=== PATIENT | female | born 1945 | race Caucasian/White ===

== ENCOUNTER 2021-02-25 18:13 | Inpatient (IN) | payer MEDICARE ==
[~2021-02-25] VITALS: Ht 170.2 cm; Wt 59.9 kg
[2021-02-25 20:46] LABS: BASOPHILS 0.1 % (0-2); IMMATURE GRANULOCYTES 0.3 % (0-5); LYMPHOCYTE ABS# 2.03 10x3/uL (1.18-3.74); LYMPHOCYTES 20.7 % (15-50); MCH 30.5 pg (26.0-34.0); MCHC 30.9 g/dL (31.0-37.0); MCV 98.9 fL (80.0-100.0); MEAN PLATELET VOLUME 8.8 fL (7.4-10.4); MONOCYTES 7.3 % (2-11); NEUTROPHIL ABS# 6.65 10x3/uL (1.56-6.13); NEUTROPHILS 67.6 % (40-80); PLATELET COUNT 382 10x3/uL (130-400); RDW 21.4 % (11.5-14.5); WBC 9.8 10x3/uL (4.8-10.8)
[2021-02-25 20:51] LABS: HEMATOCRIT 18.8 % (36.0-48.0); HEMOGLOBIN 5.8 g/dL (12-16)
[2021-02-25 20:53] LABS: INR 1.13 (0.85-1.17); PROTIME 13.4 SECONDS (11.6-15.0)
[2021-02-25 20:54] LABS: CALC OSMOLALITY 284 mosm/kg (275-300); CALCIUM 8.9 mg/dL (8.5-10.1); CARBON DIOXIDE 26.7 mmol/L (21.0-32.0); CHLORIDE - SERUM 98 mmol/L (98-107); CREATININE - SERUM 4.5 mg/dL (0.6-1.3); GLUCOSE 136 mg/dL (74-106); POTASSIUM - SERUM 3.8 mmol/L (3.5-5.1); SODIUM 136 mmol/L (136-145); UREA NITROGEN 42 mg/dL (7-18); eGFR NON AFRICAN AMERICAN 10 mL/min (90-120)
[2021-02-25 21:26] LABS: ALBUMIN 2.6 g/dL (3.4-5.0); ALKALINE PHOSPHATASE 195 U/L (30-120); ALT (SGPT) 32 U/L (10-68); BILIRUBIN - TOTAL 0.41 mg/dL (0.2-1.3); CKMB 1.9 U/L (0.0-3.6); CREATINE KINASE 91 UL (21-215); FERRITIN 295 ng/mL (3-244); MAGNESIUM - SERUM 1.6 mg/dL (1.8-2.4); PROTEIN - SERUM 5.3 g/dL (6.4-8.2)
[2021-02-26 04:00] VITALS: BP 142/50
[2021-02-26] MEDS ORDERED: LIPITOR40 MG PO (07:29)
[2021-02-26 08:14] VITALS: BP 152/75
--- NOTE | 2021-02-26 09:42 | NUR ---
NURSE GIVES PATIENT IV PAIN MEDS FOR 10/10 PAIN IN HER RIGHT SHOULDER. SHE STATES SHE PULLED HERSELF UP IN BED AND HURT HER SHOULDER.
[2021-02-26 10:41] LABS: BASOPHILS 0.2 % (0-2); EOSINOPHILS 4.2 % (0-7); IMMATURE GRANULOCYTES 0.5 % (0-5); LYMPHOCYTE ABS# 1.08 10x3/uL (1.18-3.74); LYMPHOCYTES 12.3 % (15-50); MCH 30.3 pg (26.0-34.0); MCHC 32.4 g/dL (31.0-37.0); MEAN PLATELET VOLUME 8.9 fL (7.4-10.4); MONOCYTES 6.9 % (2-11); NEUTROPHIL ABS# 6.69 10x3/uL (1.56-6.13); NEUTROPHILS 75.9 % (40-80); PLATELET COUNT 343 10x3/uL (130-400); RDW 19.8 % (11.5-14.5); WBC 8.8 10x3/uL (4.8-10.8)
[2021-02-26 10:49] LABS: HEMATOCRIT 28.7 % (36.0-48.0); HEMOGLOBIN 9.3 g/dL (12-16); MCV 93.5 fL (80.0-100.0); RBC 3.07 10x6/uL (4.00-5.40)
[2021-02-26 10:53] LABS: ALBUMIN 2.7 g/dL (3.4-5.0); ANION GAP 12.4 mmol/L (8-16); BILIRUBIN - TOTAL 0.96 mg/dL (0.2-1.3); CARBON DIOXIDE 28.5 mmol/L (21.0-32.0); CREATININE - SERUM 4.6 mg/dL (0.6-1.3); MAGNESIUM - SERUM 1.6 mg/dL (1.8-2.4); POTASSIUM - SERUM 3.9 mmol/L (3.5-5.1); PROTEIN - SERUM 6.2 g/dL (6.4-8.2)
[2021-02-26 13:52] VITALS: Ht 170.2 cm; Wt 59.9 kg
--- NOTE | 2021-02-26 19:15 | NUR ---
pt lying in bed awake, alert denies needs, will contineu to monitor
[2021-02-26 20:00] VITALS: BP 147/69
[2021-02-27 04:00] VITALS: BP 161/66
[2021-02-27 06:11] LABS: BASOPHILS 0.2 % (0-2); EOSINOPHILS 4.8 % (0-7); HEMATOCRIT 28.8 % (36.0-48.0); HEMOGLOBIN 9.2 g/dL (12-16); IMMATURE GRANULOCYTES 0.4 % (0-5); LYMPHOCYTE ABS# 1.08 10x3/uL (1.18-3.74); MCH 30.2 pg (26.0-34.0); MCHC 31.9 g/dL (31.0-37.0); MCV 94.4 fL (80.0-100.0); MEAN PLATELET VOLUME 9.1 fL (7.4-10.4); MONOCYTES 9.5 % (2-11); NEUTROPHIL ABS# 6.01 10x3/uL (1.56-6.13); NEUTROPHILS 72.1 % (40-80); PLATELET COUNT 311 10x3/uL (130-400); RBC 3.05 10x6/uL (4.00-5.40); WBC 8.3 10x3/uL (4.8-10.8)
[2021-02-27 06:36] LABS: ALBUMIN 2.5 g/dL (3.4-5.0); ANION GAP 9.3 mmol/L (8-16); BILIRUBIN - TOTAL 0.75 mg/dL (0.2-1.3); CALCIUM 9.3 mg/dL (8.5-10.1); CARBON DIOXIDE 30.2 mmol/L (21.0-32.0); CREATININE - SERUM 3.5 mg/dL (0.6-1.3); MAGNESIUM - SERUM 1.8 mg/dL (1.8-2.4); POTASSIUM - SERUM 3.5 mmol/L (3.5-5.1)
--- NOTE | 2021-02-27 08:10 | NUR ---
NURSE AMBULATED PATIENT TO RESTROOM THIS AM. PATIENT IS AWAKE ALERT AND ORIENTED AND READY TO GO HOME. PATIENT DENIES NEEDS. CALL LIGHT IN REACH
[2021-02-27 08:15] VITALS: BP 177/55
[2021-02-27] MEDS ORDERED: PROTONIX40 MG PO (11:21)
--- NOTE | 2021-02-27 13:53 | NUR ---
NURSE REVIEWS DC INSTRUCTIONS AT THIS TIME WITH PATIENT. PLAN OF CARE, FOLLOW UP APPTS AND DC MEDICATIONS GIVEN. PATIENT DENIES NEEDS. CALL LIGHT IN REACH , WAITING ON TO GET HER LATER TODAY
--- NOTE | 2021-02-27 15:37 | NUR ---
NURSE REMOVES PATIENT'S CENTRAL LINE AND PLACES PATIENT'S DRESSING ON SITE. PATIENT INSTRUCTED TO LAY FLAT FOR 15 MINUTES. PATIENT VERBS UNDERSTANDING. PATIENT HAS FAMILY IN ROOM. PATINENT ENCOURAGED TO CALL OUT WHEN SHE IS READY TO BE WHEELED OUT.
--- NOTE | 2021-02-28 09:37 | MORECARE ---
CASE MANAGEMENT DISCHARGE SUMMARY PATIENT: PURA MARRUFO UNIT: [id number] ADM DATE: 02/25/21 AGE: 76 : 46 SEX: F ROOM/BED: D.0467 AUTHOR: TRUDY,DOC PHYSICIAN: REFERRING PHYSICIAN: BELEN MANNING MD DATE OF SERVICE: 02/28/21 Case Management Discharge Planning Summary CT Patient Name: PURA MARRUFO Attending MD : LATONYA MANNING, Medical Record: [id number] Encounter : [id number] Facility : [address] [place] [address] Admission Date : 120:23 Center Discharge Date : 02/27/2021 [facility] [place] [address] Date of : DC Plan ID : [id number] Age/Sex/Martia : 76/ F/S Printed on : 02/28/21 9:36 CT DCP Review Details Anticipated D/C: Expected LOS : Case Status : INITIATED - Initial Reviewe: [id number] Delia Calzada Initial Review: 02/28/2021 Planned Disposi: - Final Discharge: - Final Reviewer : : Final Review : DCP Focus Questions & Answers DCP Screen High Risk Factors: Readmission within past 30 days DCP Evaluation Patient and/or caregiver agree upon recommended Yes discharge plan? Patient's current cognitive status: *Oriented to person, place, situation, time and present Patient gives permission to discuss discharge Garrick jenkins - [phone] plans with: (name, relationship and number) Patient's ability to cope with chronic illness d. No chronic illness Does the patient have the ability to pay for or Yes attain post discharge needs / services? Physical Status: Independent with ADL's Equipment needed for post hospitalization: None Is there a likelihood that the patient will No require additional services to return to the preadmission environment? Living Arrangements: Home Alone with Support Results of this evaluation have been discussed Patient with: Patient with capacity for self-care or can be Yes cared for in same environment as prior to hospitalization? Living arrangements comments: Lives in a [facility] motel Baseline cognitive status: *Oriented to person, place, situation, time and present Physical environment modification needed / No anticipated for discharge: Facility / Agency name and contact information [facility] from [facility] (if applicable): Medication Management: Patient states can afford medications Planned post hospital services available for No patient? [facility]acy [facility](s[facility] Planned post hospital services covered by No insurance plan? Does Patient have transportation to get home and Yes to follow-up medical appointments when discharged from the hospital? Would patient like to participate in any Care Not applicable Coordination programs (if applicable): Does the patient have electricity at home? Yes Does the patient have running water in their Yes house? Equipment in use: None Mental health screen: No mental health history Abuse/Neglect: Alcohol use - History of DCP Re-evaluation Would patient like to participate in any Care Not applicable Coordination programs (if applicable): [facility] PURA MARRUFO MR#: [id number] /Age/Sex/Xkymhe08-Dqd-20 /76/F /S Attending Physician Name: KERRI [id number] Patient Account:[id number] [facility] Page -1 of 1 All edits/amendments must be made on the electronic document DICTATION DATE: 02/28/21935 MEDICAL BILLING REPRESENTATIVE: SABI 02/28/21935 RPT#: [id number] DC DATE:02/27/21 STATUS: DIS IN [facility] [address] [place] [address] END OF REPORT
--- NOTE | 2021-03-01 04:20 | MORECARE ---
CASE MANAGEMENT DISCHARGE SUMMARY PATIENT: PURA MARRUFO UNIT: [id number] ADM DATE: 02/25/21 AGE: 76 : 46 SEX: F ROOM/BED: D.8997 AUTHOR: TRUDY,DOC PHYSICIAN: REFERRING PHYSICIAN: BELEN MANNING MD DATE OF SERVICE: 03/01/21 Case Management Discharge Planning Summary CT Patient Name: PURA MARRUFO Attending MD : LATONYA MANNING, Medical Record: [id number] Encounter : [id number] Facility : [address] [place] [address] Admission Date : 120:23 Center Discharge Date : 02/27/2021 [facility] [place] [address] Date of : DC Plan ID : [id number] Age/Sex/Martia : 76/ F/S Printed on : 03/01/21 4:18 CT DCP Review Details Anticipated D/C: Expected LOS : Case Status : INITIATED - Initial Reviewe: [id number] Delia Calzada Initial Review: 02/28/2021 Planned Disposi: - Final Discharge: - Final Reviewer : : Final Review : DCP Focus Questions & Answers DCP Screen High Risk Factors: Readmission within past 30 days DCP Evaluation Patient's ability to cope with chronic illness d. No chronic illness Patient gives permission to discuss discharge Garrick jenkins - [phone] plans with: (name, relationship and number) Patient's current cognitive status: *Oriented to person, place, situation, time and present Patient and/or caregiver agree upon recommended Yes discharge plan? Physical Status: Independent with ADL's Does the patient have the ability to pay for or Yes attain post discharge needs / services? Living Arrangements: Home Alone with Support Is there a likelihood that the patient will No require additional services to return to the preadmission environment? Equipment needed for post hospitalization: None Baseline cognitive status: *Oriented to person, place, situation, time and present Living arrangements comments: Lives in a intermediate motel Patient with capacity for self-care or can be Yes cared for in same environment as prior to hospitalization? Results of this evaluation have been discussed Patient with: Facility / Agency name and contact information [facility] (if applicable): Physical environment modification needed / No anticipated for discharge: Medication Management: Patient states can afford medications Pharmacy name(s): [facility] Planned post hospital services available for No patient? Does Patient have transportation to get home and Yes to follow-up medical appointments when discharged from the hospital? Planned post hospital services covered by No insurance plan? Would patient like to participate in any Care Not applicable Coordination programs (if applicable): Does the patient have electricity at home? Yes Does the patient have running water in their Yes house? Equipment in use: None Mental health screen: No mental health history Abuse/Neglect: Alcohol use - History of DCP Re-evaluation Would patient like to participate in any Care Not applicable Coordination programs (if applicable): [facility] PURA MARRUFO MR#: [id number] /Age/Sex/Jggvcg74-Jhl-20 /76/F /S Attending Physician Name: KERRI [id number] [id number] [facility] All edits/amendments must be made on the electronic document DICTATION DATE: 03/01/21417 FOOD VENDOR: SABI 03/01/21417 RPT#: [id number] DC DATE:02/27/21 STATUS: DIS IN [facility] [address] [place] [address] END OF REPORT
--- NOTE | 2021-03-01 08:52 | MORECARE ---
CASE MANAGEMENT DISCHARGE SUMMARY PATIENT: PURA MARRUFO UNIT: [id number] ADM DATE: 02/25/21 AGE: 76 : 46 SEX: F ROOM/BED: D.4547 AUTHOR: TRUDY,DOC PHYSICIAN: REFERRING PHYSICIAN: BELEN MANNING MD DATE OF SERVICE: 03/01/21 Case Management Discharge Planning Summary CT Patient Name: PURA MARRUFO Attending MD : LATONYA MANNING, Medical Record: [id number] Encounter : [id number] Facility : [address] [place] [address] Admission Date : 120:23 Center Discharge Date : 02/27/2021 [facility] [place] [address] Date of : DC Plan ID : [id number] Age/Sex/Martia : 76/ F/S Printed on : 03/01/21 8:50 CT DCP Review Details Anticipated D/C: Expected LOS : Case Status : INITIATED - Initial Reviewe: [id number] Delia Calzada Initial Review: 02/28/2021 Planned Disposi: - Final Discharge: - Final Reviewer : : Final Review : DCP Focus Questions & Answers DCP Screen High Risk Factors: Readmission within past 30 days DCP Evaluation Patient and/or caregiver agree upon recommended Yes discharge plan? Patient's current cognitive status: *Oriented to person, place, situation, time and present Patient gives permission to discuss discharge Garrick jenkins - [phone] plans with: (name, relationship and number) Patient's ability to cope with chronic illness d. No chronic illness Does the patient have the ability to pay for or Yes attain post discharge needs / services? Physical Status: Independent with ADL's Equipment needed for post hospitalization: None Is there a likelihood that the patient will No require additional services to return to the preadmission environment? Living Arrangements: Home Alone with Support Results of this evaluation have been discussed Patient with: Patient with capacity for self-care or can be Yes cared for in same environment as prior to hospitalization? Living arrangements comments: Lives in a [facility] motel Baseline cognitive status: *Oriented to person, place, situation, time and present Physical environment modification needed / No anticipated for discharge: Facility / Agency name and contact information [facility] [place] [facility] (if applicable): Medication Management: Patient states can afford medications Planned post hospital services available for No patient? Pharmacy name(s): [facility] Planned post hospital services covered by No insurance plan? Does Patient have transportation to get home and Yes to follow-up medical appointments when discharged from the hospital? Would patient like to participate in any Care Not applicable Coordination programs (if applicable): Does the patient have electricity at home? Yes Does the patient have running water in their Yes house? Equipment in use: None Mental health screen: No mental health history Abuse/Neglect: Alcohol use - History of DCP Re-evaluation Would patient like to participate in any Care Not applicable Coordination programs (if applicable): [facility] PURA MARRUFO MR#: [id number] /Age/Sex/Ksobhl42-Sci-32 /76/F /S Attending Physician Name: KERRI [id number] Patient Account:[id number] [facility] Page -1 of 1 All edits/amendments must be made on the electronic document DICTATION DATE: 03/01/21849 LOG SNAKER: SABI 03/01/21849 RPT#: [id number] DC DATE:02/27/21 STATUS: DIS IN [facility] [address] [place] [address] END OF REPORT
== END 2021-02-27 17:01 | disposition home health service (06) | DRG 291 ==
LOC: D.ER 18:13 → D.M2 20:23
PROVIDERS: ADMIT Family Medicine; ATTEND Family Medicine
PROC: 05H533Z Insertion of Infusion Device into Right Subclavian Vein, Percutaneous Approach (ICD-10-PCS; principal; 2021-02-25)
PROC: B546ZZA Ultrasonography of Right Subclavian Vein, Guidance (ICD-10-PCS; 2021-02-25)
PROC: 5A1D70Z Performance of Urinary Filtration, Intermittent, Less than 6 Hours Per Day (ICD-10-PCS; 2021-02-26)
DX: I13.2 Hypertensive heart and chronic kidney disease with heart failure and with stage 5 chronic kidney disease, or end stage renal disease (principal); N18.6 End stage renal disease; N25.81 Secondary hyperparathyroidism of renal origin; E11.22 Type 2 diabetes mellitus with diabetic chronic kidney disease; Z99.2 Dependence on renal dialysis; E11.21 Type 2 diabetes mellitus with diabetic nephropathy; E11.65 Type 2 diabetes mellitus with hyperglycemia; D63.1 Anemia in chronic kidney disease; E03.9 Hypothyroidism, unspecified; I50.9 Heart failure, unspecified; K21.9 Gastro-esophageal reflux disease without esophagitis; F03.90 Unspecified dementia, unspecified severity, without behavioral disturbance, psychotic disturbance, mood disturbance, and anxiety